=== PATIENT | female | born 1965 | race Caucasian/White ===

== ENCOUNTER → 2020-06-20 15:14 | Outpatient (CLI) | payer OTHER, SELFPAY ==
--- NOTE | 2020-06-20 | DI.RAD.S_ITS ---
PROCEDURE: XR CHEST 2V INDICATIONS: CHEST PAIN TECHNIQUE: 2 views of the chest were acquired. COMPARISON: None. FINDINGS: Surgical changes and devices: None. Lungs and pleura: Lungs are clear. No pleural effusions or pneumothorax. Mediastinum: Mediastinal contours are normal. Heart size is normal. Bones and chest wall: No suspicious bony abnormalities. Soft tissues appear unremarkable. IMPRESSION: No acute finding. Dictated by: Daniele Nayak M.D. on 06/20/2020 at 16:19 Approved by: Daniele Nayak M.D. on 06/20/2020 at 16:19
== END ==
PROVIDERS: PCP Family Medicine; Referring Provider Family Medicine; Visit Provider Family Medicine
DX: R07.9 Chest pain, unspecified (principal)
CPT/HCPCS: 71046

== ENCOUNTER → 2020-06-29 14:51 | Outpatient (CLI) | payer OTHER, SELFPAY ==
--- NOTE | 2020-07-05 08:47 | PM.PFT.1 ---
Pulmonary Function Test Referral & Results Date Patient Seen: 06/29/20 Requesting provider: Marlon Fisher Indication: Asthma Results: The spirometry demonstrates an FVC of 3.62 L which is 97% of predicted. The FEV1 was measured at 2.79 L which is 96% of predicted. The FEV1/FVC ratio was 77 which is 97% of predicted. Following the administration of bronchodilator there was no appreciable change to above normal numbers. Lung volumes show an SVC of 3.74 L which is 110% of predicted. The diffusing capacity was measured at 25.24 which is 93% of predicted. The maximum voluntary ventilation was normal Interpretation: This study demonstrates normal pulmonary function
== END ==
PROVIDERS: PCP Family Medicine; Referring Provider Family Medicine; Visit Provider Family Medicine
DX: J45.40 Moderate persistent asthma, uncomplicated (principal); R07.9 Chest pain, unspecified
CPT/HCPCS: 94060; 94726; 94729

== ENCOUNTER 2021-04-29 13:29 | Emergency (ER) | payer OTHER, SELFPAY ==
[2021-04-29 13:29] VITALS: BP 150/93; PULSE 79; RESP 16; TEMP 36.4; O2SAT 99
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
[2021-04-29] MEDS: IBUPROFEN 400 MG TABLET 800 MG PO (14:10)
[2021-04-29 14:50] VITALS: BP 150/80; PULSE 70; RESP 18; O2SAT 99
== END 2021-04-29 14:50 | disposition home or self-care (01) ==
PROVIDERS: Emergency Provider Emergency Medicine; PCP Family Medicine
DX: F41.9 Anxiety disorder, unspecified (principal); M25.511 Pain in right shoulder; V89.2XXA Person injured in unspecified motor-vehicle accident, traffic, initial encounter
CPT/HCPCS: 99282; 99283

== ENCOUNTER → 2021-06-28 19:05 | Outpatient (CLI) | payer OTHER, SELFPAY ==
[2021-06-28 19:37] LABS: COVID19 -Nasal RAPID POSITIVE (Negative)
== END ==
PROVIDERS: PCP Family Medicine; Visit Provider Nurse Practitioner
DX: U07.1 COVID-19 (principal); Z20.822 Contact with and (suspected) exposure to COVID-19
CPT/HCPCS: 87635

== ENCOUNTER → 2022-10-01 13:44 | Outpatient (CLI) | payer OTHER, SELFPAY ==
--- NOTE | 2022-10-01 | DI.RAD.S_ITS ---
PROCEDURE: XR LUMBAR SPINE 2-3V INDICATIONS: BACK PAIN TECHNIQUE: 3 views of the lumbar spine were acquired. COMPARISON: [facility], RG, XR L-SPINE 2-3V, 07/20/2004, 13:57. [facility], CT, ABDOMEN WITH CONTRAST, 03/29/2009, 7:22. [facility], CR, XR CHEST 2V, 06/20/2020, 15:09. FINDINGS: Bones: 5 [id number] vertebrae are present. There is normal bony alignment. There is diffuse intervertebral disc space narrowing, endplate sclerosis and osteophytosis. Mild anterior wedging is present at L1, unchanged from the study dated June 20, 2020. No acute vertebral body compression fractures. No suspicious bony lesions. Soft tissues: Overlying bowel gas pattern is normal. No suspicious soft tissue calcifications. IMPRESSION: Moderate degenerative change of the lumbar spine. No acute compression deformities. Dictated by: Jennifer Dexter M.D. on 10/01/2022 at 14:51 Approved by: Jennifer Dexter M.D. on 10/01/2022 at 14:52
--- NOTE | 2022-10-01 | DI.RAD.S_ITS ---
PROCEDURE: XR SHOULDER LT MIN 2V INDICATIONS: LEFT SHOULDER PAIN TECHNIQUE: 3 views of the shoulder were acquired. COMPARISON: None. FINDINGS: Bones: No fractures or dislocations. No suspicious bony lesions. Degenerative changes are present at the acromioclavicular joint. Visualized ribs appear intact. Soft tissues: No suspicious soft tissue calcifications. IMPRESSION: Acromioclavicular joint degeneration. Dictated by: Jennifer Dexter M.D. on 10/01/2022 at 14:50 Approved by: Jennifer Dexter M.D. on 10/01/2022 at 14:51
--- NOTE | 2022-10-01 | DI.RAD.S_ITS ---
PROCEDURE: XR CHEST 2V INDICATIONS: COUGH TECHNIQUE: 2 views of the chest were acquired. COMPARISON: [facility], CR, XR CHEST 2V, 06/20/2020, 15:09. FINDINGS: Surgical changes and devices: None. Lungs and pleura: Lungs are clear. No pleural effusions or pneumothorax. Mediastinum: Mediastinal contours are normal. Heart size is normal. Bones and chest wall: No suspicious bony abnormalities. Soft tissues appear unremarkable. IMPRESSION: No acute cardiopulmonary findings. Dictated by: Jennifer Dexter M.D. on 10/01/2022 at 14:53 Approved by: Jennifer Dexter M.D. on 10/01/2022 at 14:53
== END ==
PROVIDERS: PCP Physician Assistant; Referring Provider Physician Assistant; Visit Provider Physician Assistant
DX: M19.012 Primary osteoarthritis, left shoulder (principal); M47.816 Spondylosis without myelopathy or radiculopathy, lumbar region; R05.3 Chronic cough; M25.512 Pain in left shoulder; M54.50 Low back pain, unspecified
CPT/HCPCS: 71046; 72100; 73030

== ENCOUNTER → 2023-09-11 15:12 | Outpatient (CLI) | payer OTHER, SELFPAY ==
--- NOTE | 2023-09-11 | DI.RAD.S_ITS ---
PROCEDURE: XR FOOT LT MIN 3V INDICATIONS: left foot pain TECHNIQUE: 3 views of the foot were acquired. COMPARISON: None. FINDINGS: Bones: No acute fracture or dislocation. Degenerative changes are present within the midfoot. No suspicious bony lesions. Soft tissues: No tibiotalar joint effusion. Achilles tendon appears normal. IMPRESSION: No acute bony abnormality. If pain persists, followup imaging in 5-7 days is recommended to exclude occult fracture. Dictated by: Jennifer Dexter M.D. on 09/11/2023 at 16:50 Approved by: Jennifer Dexter M.D. on 09/11/2023 at 16:51
== END ==
PROVIDERS: PCP Physician Assistant; Referring Provider Physician Assistant; Visit Provider Physician Assistant
DX: M79.672 Pain in left foot (principal)
CPT/HCPCS: 73630

== ENCOUNTER → 2023-12-22 11:33 | Outpatient (CLI) | payer OTHER, SELFPAY ==
--- NOTE | 2023-12-22 | DI.RAD.S_ITS ---
PROCEDURE: XR CHEST 2V INDICATIONS: dyspnea on exertion, chronic cough TECHNIQUE: 2 views of the chest were acquired. COMPARISON: [facility], CR, XR CHEST 2V, 10/01/2022, 13:53. FINDINGS: Surgical changes and devices: None. Lungs and pleura: Lungs are clear. No pleural effusions or pneumothorax. Mediastinum: Mediastinal contours are normal. Heart size is normal. Bones and chest wall: No suspicious bony abnormalities. Soft tissues appear unremarkable. IMPRESSION: No acute cardiopulmonary pathology. Dictated by: Aden Guthrie M.D. on 12/22/2023 at 15:53 Approved by: Aden Guthrie M.D. on 12/22/2023 at 15:53
== END ==
PROVIDERS: PCP Physician Assistant; Referring Provider Physician Assistant; Visit Provider Physician Assistant
DX: R06.09 Other forms of dyspnea (principal); R05.3 Chronic cough
CPT/HCPCS: 71046

== ENCOUNTER → 2024-01-29 07:04 | Outpatient (CLI) | payer OTHER, SELFPAY ==
--- NOTE | 2024-01-29 07:05 | DI.ECHO.S_ITS ---
[facility] +---------+ [facility] : : [address] : : [place] : : [id number] : : Phone: [phone] Echocardiogram Report + + :Name: SHAMAR LUDWIG Study Date: 01/29/2024 Height: 66 in : :[facility] ReadingLocation: Weight: 175 lb : : Gender: Female BSA: 1.9 m2 : :: 1965 Age: 58 yrs BP: 126/88 mmHg: :Reason For Study: DYSPNEA : :Ordering Physician: FIDEL, : :ZEENAT Performed By: Katty Torre : :Referring: ZEENAT PARRA : + + Interpretation Summary Normal sinus rhythm. Normal LV size, wall thickness, wall motion and LV systolic function. EF is 55-60%. Normal chamber sizes. No valvular abnormalities. No prior study available for comparison. Procedure: A two-dimensional transthoracic echocardiogram with color flow and Doppler was performed. The study quality was technically adequate. There is no prior echocardiogram noted for this patient. The patient was in sinus rhythm with heart rates between 66-75 bpm during the exam. Left Ventricle: The left ventricle is normal in size and wall thickness. The ejection fraction is estimated to be 55-60%. Diastolic parameters suggest probable normal left ventricular diastolic function and normal filling pressures. Right Ventricle: The right ventricle is normal in size and function. Atria: The left atrial size is normal. Right atrial size is normal. There is no Doppler evidence for an interatrial shunt. Mitral Valve: The mitral valve is normal in structure and function. There is trace mitral regurgitation. Aortic Valve: The aortic valve is trileaflet. The aortic valve opens well. There is no aortic valve stenosis. There is trace aortic regurgitation. Tricuspid Valve: The tricuspid valve is normal in structure and function. There is a trace or physiologic amount of tricuspid regurgitation. Pulmonic Valve: The pulmonic valve leaflets are thin and pliable; valve motion is normal. There is mild to moderate pulmonic regurgitation. Great Vessels: The aortic root is normal size. The dimensions of the ascending aorta are normal. The IVC is of normal diameter and collapses greater than 50% with a sniff. This suggests a low right atrial pressure of 3 mm Hg. Pericardium/ Pleura There is no pericardial effusion. There is no pleural effusion. MMode/2D Measurements & Calculations LVIDd: 5.2 cm LVOT diam: 2.0 cm LVIDs: 3.3 cm Ao root diam: 3.1 cm FS: 36.5 % asc Aorta Diam: 3.4 cm IVSd: 0.85 cm Ao Arch Diam (Prox Trans): 2.7 cm LVPWd: 0.65 cm LV gallegos. diameter/BSA (cm/m^2): 2.8 LV sys. diameter/BSA (cm/m^2): 1.8 LA A2 area: 18.0 cm2 RA long axis: 4.6 cm LA A4 area: 11.1 cm2 RA area: 13.6 cm2 LA length (vol): 4.8 cm RA vol: 34.3 ml LA vol: 35.3 ml RA : 18.2 ml/m2 LA vol index: 18.7 ml/m2 IVC diam: 1.5 cm RVD1 (basal): 3.2 cm RVD2 (mid): 2.3 cm TAPSE: 2.2 cm Doppler Measurements & Calculations Ao V2 max: 137.8 cm/sec LVOT Max Tenzin: 94.0 cm/sec Ao V2 mean: 100.1 cm/sec LV V1 max P.5 mmHg Ao max P.6 mmHg LV V1 VTI: 19.4 cm Ao mean P.4 mmHg ERIK(I,D): 2.3 cm2 Ao V2 VTI: 27.4 cm ERIK(V,D): 2.2 cm2 sev ratio: 0.71 ERIK indexed to BSA (cm^2/m^2): 1.2 MV E max tenzin: 68.3 cm/sec PA V2 max: 98.5 cm/sec MV A max tenzin: 62.5 cm/sec PA V2 mean: 68.9 cm/sec MV E/A: 1.1 PA mean P.1 mmHg Med Peak E' Tenzin: 7.3 cm/sec PA pr(Accel): 31.0 mmHg E/E' med: 9.3 Lat Peak E' Tenzin: 10.3 cm/sec E/E' lat: 6.6 E/e' average: 8.0 MV dec time: 0.19 sec SV(LVOT): 62.6 ml Electronically signed by: Alondra Chavez M.D. on Reading Physician:01/30/2024 12:46 AM
== END ==
PROVIDERS: PCP Physician Assistant; Referring Provider Physician Assistant; Visit Provider Physician Assistant
DX: I37.1 Nonrheumatic pulmonary valve insufficiency (principal); R06.09 Other forms of dyspnea
CPT/HCPCS: 93306